=== PATIENT | female | born 1940 | race Caucasian/White ===

== ENCOUNTER 2016-07-07 13:29 | Inpatient (IN) | payer MEDICARE ==
[~2016-07-07] VITALS: Ht 160 cm; Wt 46.5 kg
[~2016-07-07 13:29] MED LIST: AMBI10TA PO; PRIN10TA PO; TOPR25TA2 PO; ZOCO40TA PO
[2016-07-07 13:32] VITALS: BP 108/60; PULSE 98; RESP 20; TEMP 97.6; O2SAT 95
--- NOTE | 2016-07-07 14:46 | PD ---
HPI Chief Complaint: Skin Problem Time Seen by Provider: 14:46 Travel History International Travel<30 days: No Contact w/Intl Traveler<30days: No Traveled to known affect area: No History of Present Illness HPI 75-year-old female presents to the emergency department for evaluation of discoloration of her distal left toe. Patient states for the last couple of days she has noticed it being more red. Then this morning she noticed a darker purple discoloration of the distal toe with pain radiating to her leg. She states that her left lower extremity feels numb at times. Elevation helps to reduce the sensation pain however the discoloration does not resolve. She went to her primary care providers today who sent her to the emergency department for evaluation of occlusion versus DVT. She has not been recently ill. No fevers or chills. No chest tightness. No shortness of breath. She does feel unsteady due to the numbness sensation in her left lower extremity that [place] about her mid distal lower extremity at this point. PFSH Past Medical History Cardiovascular Problems: Yes (MITRAL VALVE PROLAPSE) Diverticulitis: Yes Hypertension: Yes Past Surgical History Abdominal Aneurysm Repair: Yes (CLIP IN BRAIN) Abdominal Surgery: Yes (HERNIA REPAIRS) Cholecystectomy: Yes Hysterectomy: Yes Social History Alcohol Use: No Tobacco Use: Yes (1 PPD) Substance Use: No Allergies-Medications (Allergen,Severity, Reaction): Coded Allergies: Medrol (Verified Allergy, Severe, SHORTNESS OF BREATH, RASH, 01/31/10) Motrin (Verified Allergy, Intermediate, RASH AND SWELLING, 01/31/10) Darvocet-N 100 (Verified Allergy, Mild, RASH, 01/31/10) Darvon (Verified Allergy, Mild, RASH, 01/31/10) Percocet (Verified Allergy, Mild, RASH, 01/31/10) Percodan (Verified Allergy, Mild, RASH, 01/31/10) Aspirin (Verified Allergy, Unknown, NO BLOOD THINNERS PER PATIENT REQUEST , 01/31/10) Caffeine (Verified Allergy, Unknown, PER PATIENT REQUEST, 01/31/10) Codeine (Verified Allergy, Unknown, NO CODEINE DERIVATIVES, 01/31/10) Uncoded Allergies: NO MRI AND NO BLOOD THINNERS (Adverse Reaction, Unknown, 01/31/10) Reported Meds & Prescriptions Reported Meds & Active Scripts Active Reported Nabumetone 750 Mg Tab 750 Mg PO BID Metoprolol Tartrate 25 Mg Tab 25 Mg PO DAILY Lorazepam 1 Mg Tab 1 Mg PO BID PRN Hydrocodone-Acetaminophen 7.5-325 mg Tab 1 Tab PO Q8HR PRN Carisoprodol 350 Mg Tab 350 Mg PO BID PRN Buspirone (Buspirone HCl) 10 Mg Tab 10 Mg PO BID Review of Systems Except as stated in HPI: all other systems reviewed are Neg Physical Exam Narrative GENERAL: Well-nourished female patient, ambulatory and in no acute distress SKIN: Warm and dry. There is a purple discoloration of the distal left great toe. It is blanchable. Pulses are palpable but thready in the left side. The foot remains warm. HEAD: Atraumatic. Normocephalic. EYES: Pupils equal and round. No scleral icterus. No injection or drainage. This conjugated ENT: No nasal bleeding or discharge. Mucous membranes pink and moist. NECK: Trachea midline. No JVD. CARDIOVASCULAR: Regular rate and rhythm. No murmur appreciated. RESPIRATORY: No accessory muscle use. Clear to auscultation. Breath sounds equal bilaterally. GASTROINTESTINAL: Abdomen soft, non-tender, nondistended. Hepatic and splenic margins not palpable. MUSCULOSKELETAL: No obvious deformities. No clubbing. No cyanosis. No edema. NEUROLOGICAL: Awake and alert. No obvious cranial nerve deficits. Motor grossly within normal limits. Normal speech. Data Data Last Documented VS Vital Signs Date Time Temp Pulse Resp B/P Pulse Ox O2 Delivery O2 Flow Rate FiO2 07/07/16 18:00 97.8 86 16 136/69 97 Room Air Orders Complete Blood Count With Diff (07/07/16 14:45) Comprehensive Metabolic Panel (07/07/16 14:45) Coag Profile (07/07/16 14:45) Us Leg Venous Doppler (07/07/16 ) Heparin Infusion REFUGIO.Q1H (07/07/16 18:11) Heparin-D5w Inj (Heparin-D5w Inj) (07/07/16 18:15) Admit Order (Ed Use Only) (07/07/16 18:16) Labs Laboratory Tests Test 07/07/16 14:56 White Blood Count 9.9 TH/MM3 Red Blood Count 5.10 MIL/MM3 Hemoglobin 16.2 GM/DL Hematocrit 47.9 % Mean Corpuscular Volume 94.0 FL Mean Corpuscular Hemoglobin 31.8 PG Mean Corpuscular Hemoglobin 33.8 % Concent Red Cell Distribution Width 13.0 % Platelet Count 225 TH/MM3 Mean Platelet Volume 8.4 FL Neutrophils (%) (Auto) 78.5 % Lymphocytes (%) (Auto) 13.5 % Monocytes (%) (Auto) 4.9 % Eosinophils (%) (Auto) 1.9 % Basophils (%) (Auto) 1.2 % Neutrophils # (Auto) 7.8 TH/MM3 Lymphocytes # (Auto) 1.3 TH/MM3 Monocytes # (Auto) 0.5 TH/MM3 Eosinophils # (Auto) 0.2 TH/MM3 Basophils # (Auto) 0.1 TH/MM3 CBC Comment DIFF FINAL Differential Comment Prothrombin Time 11.0 SEC Prothromb Time International 1.0 RATIO Ratio Activated Partial 25.9 SEC Thromboplast Time Sodium Level 140 MEQ/L Potassium Level 3.8 MEQ/L Chloride Level 104 MEQ/L Carbon Dioxide Level 27.2 MEQ/L Anion Gap 9 MEQ/L Blood Urea Nitrogen 6 MG/DL Creatinine 0.65 MG/DL Estimat Glomerular Filtration 89 ML/MIN Rate Random Glucose 96 MG/DL Calcium Level 8.9 MG/DL Total Bilirubin 0.4 MG/DL Aspartate Amino Transf 13 U/L (AST/SGOT) Alanine Aminotransferase 16 U/L (ALT/SGPT) Alkaline Phosphatase 78 U/L Total Protein 7.2 GM/DL Albumin 3.7 GM/DL MDM Medical Decision Making Medical Screen Exam Complete: Yes Emergency Medical Condition: Yes Medical Record Reviewed: Yes Differential Diagnosis Superficial thrombosis versus DVT versus occlusive disease versus PAD Narrative Course 75-year-old female presents to emergency department for evaluation of discoloration of the left distal great toe. Patient appears without distress. Workup is initiated in triage. Once a medical bed becomes available, patient will be transferred and care assumed by that provider. 1615 we are contacted by CT where patient has gone for evaluation of possible occlusion and patient states in CT that she is allergic to contrast dye. This has not been listed in her allergies up to this point. Patient will be moved to the triage area where she'll wait for next medical bed. Condition: Stable Carolyn Villalobos Jul 07, 2016 14:46
[2016-07-07 15:18] LABS: AUTOMATED NEUTROPHIL # 7.8 TH/MM3 (1.8-7.7); BASOPHIL # 0.1 TH/MM3 (0-0.2); BASOPHIL % 1.2 % (0.0-2.0); EOSINOPHIL # 0.2 TH/MM3 (0-0.4); EOSINOPHIL % 1.9 % (0.0-4.0); HEMATOCRIT 47.9 % (35.0-46.0); HEMO FLAGS DIFF FINAL; LYMPH % 13.5 % (9.0-44.0); LYMPHOCYTE # 1.3 TH/MM3 (1.0-4.8); MEAN CORPUSCULAR HEMOGLOBIN 31.8 PG (27.0-34.0); MEAN CORPUSCULAR HGB CONC 33.8 % (32.0-36.0); MONO % 4.9 % (0.0-8.0); NEUT % 78.5 % (16.0-70.0); PLATELET COUNT 225 TH/MM3 (150-450); WHITE BLOOD COUNT 9.9 TH/MM3 (4.0-11.0)
[2016-07-07 15:30] LABS: APTT (PATIENT) 25.9 SEC (24.3-30.1)
[2016-07-07 15:41] LABS: ALT (GPT) 16 U/L (10-53); ANION GAP 9 MEQ/L (5-15); AST (GOT) 13 U/L (15-37); BICARBONATE 27.2 MEQ/L (21.0-32.0); BLOOD UREA NITROGEN 6 MG/DL (7-18); CHLORIDE 104 MEQ/L (98-107); GLOMERULAR FILTRATION RATE 89 ML/MIN (>89); POTASSIUM 3.8 MEQ/L (3.5-5.1); SODIUM (NA) 140 MEQ/L (136-145)
[2016-07-07 15:43] LABS: ALKALINE PHOSPHATASE 78 U/L (45-117); TOTAL BILIRUBIN ADULT 0.4 MG/DL (0.2-1.0)
--- NOTE | 2016-07-07 16:55 | RADRPT ---
EXAM DATE/TIME: 07/07/2016 16:32 [facility] COMPARISON: No previous studies available for comparison. INDICATIONS : Left leg pain. MEDICAL HISTORY : Hypertension. Mitral valve prolapse. Diverticulitis. SURGICAL HISTORY : Cholecystectomy. Hysterectomy. Brain anerysm repair. Abdominal hernia repairs. ENCOUNTER: Initial ACUITY: 3 days PAIN SCORE: 10/10 LOCATION: Left leg. TECHNIQUE: Venous ultrasound of the leg was performed from the inguinal ligament to the proximal calf. Real-tanmay e, color Doppler and spectral tracing, compression and augmentation techniques were used. FINDINGS: There is normal compressibility of the deep venous system from the inguinal region to the proximal ca lf. No echogenic clot is seen in the lumen of the common femoral, femoral, popliteal, and posterior tibial veins. There is a normal response of the venous system to proximal and distal augmentation an d respiration. CONCLUSION: Normal examination. No evidence DVT Jus Nunez MD on July 07, 2016 at 16:54 Board Certified Radiologist. This report was verified electronically.
[2016-07-07] MEDS ORDERED: NABU1TAB33 PO (17:42)
[2016-07-07] MEDS ORDERED: LORA1TAB12 PO (17:42)
[2016-07-07] MEDS ORDERED: METO25TA3 PO (17:42)
[2016-07-07] MEDS ORDERED: CARI350T20 PO (17:42)
[2016-07-07] MEDS ORDERED: HYDR-3580 PO (17:42)
[2016-07-07] MEDS ORDERED: BUSP10TA PO (17:42)
[2016-07-07 18:00] VITALS: BP 136/69; PULSE 86; RESP 16; TEMP 97.8; O2SAT 97
--- NOTE | 2016-07-07 18:20 | PD ---
Physical Exam Narrative Patient was seen by my periodontal assistant and signed out to me. Data Data Last Documented VS Vital Signs Date Time Temp Pulse Resp B/P Pulse Ox O2 Delivery O2 Flow Rate FiO2 07/07/16 18:00 97.8 86 16 136/69 97 Room Air Orders Complete Blood Count With Diff (07/07/16 14:45) Comprehensive Metabolic Panel (07/07/16 14:45) Coag Profile (07/07/16 14:45) Us Leg Venous Doppler (07/07/16 ) Heparin Infusion REFUGIO.Q1H (07/07/16 18:11) Heparin-D5w Inj (Heparin-D5w Inj) (07/07/16 18:15) Labs Laboratory Tests Test 07/07/16 14:56 White Blood Count 9.9 TH/MM3 Red Blood Count 5.10 MIL/MM3 Hemoglobin 16.2 GM/DL Hematocrit 47.9 % Mean Corpuscular Volume 94.0 FL Mean Corpuscular Hemoglobin 31.8 PG Mean Corpuscular Hemoglobin 33.8 % Concent Red Cell Distribution Width 13.0 % Platelet Count 225 TH/MM3 Mean Platelet Volume 8.4 FL Neutrophils (%) (Auto) 78.5 % Lymphocytes (%) (Auto) 13.5 % Monocytes (%) (Auto) 4.9 % Eosinophils (%) (Auto) 1.9 % Basophils (%) (Auto) 1.2 % Neutrophils # (Auto) 7.8 TH/MM3 Lymphocytes # (Auto) 1.3 TH/MM3 Monocytes # (Auto) 0.5 TH/MM3 Eosinophils # (Auto) 0.2 TH/MM3 Basophils # (Auto) 0.1 TH/MM3 CBC Comment DIFF FINAL Differential Comment Prothrombin Time 11.0 SEC Prothromb Time International 1.0 RATIO Ratio Activated Partial 25.9 SEC Thromboplast Time Sodium Level 140 MEQ/L Potassium Level 3.8 MEQ/L Chloride Level 104 MEQ/L Carbon Dioxide Level 27.2 MEQ/L Anion Gap 9 MEQ/L Blood Urea Nitrogen 6 MG/DL Creatinine 0.65 MG/DL Estimat Glomerular Filtration 89 ML/MIN Rate Random Glucose 96 MG/DL Calcium Level 8.9 MG/DL Total Bilirubin 0.4 MG/DL Aspartate Amino Transf 13 U/L (AST/SGOT) Alanine Aminotransferase 16 U/L (ALT/SGPT) Alkaline Phosphatase 78 U/L Total Protein 7.2 GM/DL Albumin 3.7 GM/DL MDM Supervised Visit with DOC: Yes Narrative Course Dr. Diaz, vascular surgeon came to see the patient. Advised admission and heparin drip and IV hydration. CTA runoff in a.m. Diagnosis Primary Impression: Peripheral vascular disease with pain at rest Admitting Information Admitting Physician Requests: Admit Condition: Stable Abraham Barros MD Jul 07, 2016 18:20
[2016-07-07] MEDS: HEPARIN-D5W INJ 250 ML IV SCH (18:27)
[2016-07-07] MEDS ORDERED: ONDANSETRON HCL 4 MG/2 ML VIAL IV PRN (18:30)
[2016-07-07] MEDS ORDERED: ACETAMINOPHEN 325 MG TAB PO PRN (18:30)
[2016-07-07] MEDS ORDERED: SODIUM CHLORIDE 0.9% FLUSH 5 ML FLUSH IVF PRN (18:30)
[2016-07-07] MEDS: SODIUM CHLOR 0.9% 1000 ML INJ 1,000 ML IV SCH (18:35)
--- NOTE | 2016-07-07 18:38 | PD.VS.CON ---
History of Present Illness Chief Complaint: left great toe wound for six weeks that has expanded from a ena to a pea- sized painful discoloration over the tip. (worst over past 4 days) Consult Requested by: Abraham Barros History of Present Illness Pleasant 75 yr old with hx of hypertension/hyperlipidemia and 60+ pack year smoking hx (smoking since 13 years of age) and left great toe wound. Coinciding claudication with activities at home relieved with rest. Denies sidedness. Denies TIA, CP, or SOB. Hx of intracerebral aneurysm clipping. Past/Family/Social History Past Medical History Hypertension anxiety hyperlipidemia Past Surgical History RIH repair. Umbilical hernia repair Cholecystectomy intracerebral aneurysm clipping Social History smoking for 60+ pack yrs. Family History denies Home Medications Reported Medications Nabumetone 750 Mg [id number] Mg PO BID #60 TAB Ref 0 07/07/16 Metoprolol Tartrate 25 Mg Tab25 Mg PO DAILY #30 TAB Ref 0 07/07/16 Lorazepam 1 Mg Tab1 Mg PO BID PRN (for severe anxiety or dyspnea) Ref 0 07/07/16 Hydrocodone-Acetaminophen 7.5-325 mg Tab1 Tab PO Q8HR PRN (PAIN) Ref 0 07/07/16 Carisoprodol 350 Mg [id number] Mg PO BID PRN (PAIN) #0 TAB Ref 0 07/07/16 Buspirone 10 Mg Tab10 Mg PO BID Ref 0 07/07/16 Coded Allergies: Medrol (Verified Allergy, Severe, SHORTNESS OF BREATH, RASH, 01/31/10) Motrin (Verified Allergy, Intermediate, RASH AND SWELLING, 01/31/10) Darvocet-N 100 (Verified Allergy, Mild, RASH, 01/31/10) Darvon (Verified Allergy, Mild, RASH, 01/31/10) Percocet (Verified Allergy, Mild, RASH, 01/31/10) Percodan (Verified Allergy, Mild, RASH, 01/31/10) Aspirin (Verified Allergy, Unknown, NO BLOOD THINNERS PER PATIENT REQUEST , 01/31/10) Caffeine (Verified Allergy, Unknown, PER PATIENT REQUEST, 01/31/10) Codeine (Verified Allergy, Unknown, NO CODEINE DERIVATIVES, 01/31/10) Uncoded Allergies: NO MRI AND NO BLOOD THINNERS (Adverse Reaction, Unknown, 01/31/10) Review of Systems ROS Limitations: Other (anxuiys) Gastrointestinal: COMPLAINS OF: Diarrhea (intermittent) Psychiatric: COMPLAINS OF: Anxiety (would like to go home), Confusion, Mood changes, Depression, Hallucinations, Agitation, Suicidal Ideation, Homicidal Ideation, Delusions Physical Exam Vitals/I&O Date Time Temp Pulse Resp B/P Pulse Ox O2 Delivery O2 Flow Rate FiO2 07/07/16 18:00 97.8 86 16 136/69 97 Room Air 07/07/16 13:32 97.6 98 20 108/60 95 Room Air Neuro: CN2-12 intact, motor and sensory intact bilaterally. HEENT: tounge moist Neck: no carotid bruits Heart: no murmurs, regular rate. Lungs: CTA bilaterally. Abdomen: soft, non-distended, no pulsatile mass. Vascular: Bilateral radial palpable Right femoral palpable with triphasic DP and PT. Left NON palpable femoral pulse with biphasic DP and PT. Extremities: left great toe distal tip with 4mm discoloration. Laboratory Tests Test 07/07/16 14:56 White Blood Count 9.9 Red Blood Count 5.10 Hemoglobin 16.2 Hematocrit 47.9 Mean Corpuscular Volume 94.0 Mean Corpuscular Hemoglobin 31.8 Mean Corpuscular Hemoglobin 33.8 Concent Red Cell Distribution Width 13.0 Platelet Count 225 Mean Platelet Volume 8.4 Neutrophils (%) (Auto) 78.5 Lymphocytes (%) (Auto) 13.5 Monocytes (%) (Auto) 4.9 Eosinophils (%) (Auto) 1.9 Basophils (%) (Auto) 1.2 Neutrophils # (Auto) 7.8 Lymphocytes # (Auto) 1.3 Monocytes # (Auto) 0.5 Eosinophils # (Auto) 0.2 Basophils # (Auto) 0.1 CBC Comment DIFF FINAL Differential Comment Prothrombin Time 11.0 Prothromb Time International 1.0 Ratio Activated Partial 25.9 Thromboplast Time Sodium Level 140 Potassium Level 3.8 Chloride Level 104 Carbon Dioxide Level 27.2 Anion Gap 9 Blood Urea Nitrogen 6 Creatinine 0.65 Estimat Glomerular Filtration 89 Rate Random Glucose 96 Calcium Level 8.9 Total Bilirubin 0.4 Aspartate Amino Transf 13 (AST/SGOT) Alanine Aminotransferase 16 (ALT/SGPT) Alkaline Phosphatase 78 Total Protein 7.2 Albumin 3.7 Last 48 hours Impressions Lower Extremity Ultrasound 07/07/16 0000 Signed Impressions: Service Date/Time: Thursday, July 07, 2016 16:32 - CONCLUSION: Normal examination. No evidence DVT Jus Nunez MD Assessment and Plan Assessment: (1) Peripheral vascular disease with pain at rest Status: Chronic Plan 75 year old female with hx of smoking, hypertension and hyperlipidemia. Critical limb ischemia with great toe wound/ischemic changes left lower extremity. (6 weeks since findings) Motor and sensory intact. Vascular exam significant for multilevel disease. 1. smoking cessation. 2. Continue statin. 3. Patient with hx of intracerebral aneurysm told not to take blood thinners. Discussed risk and benefits of an antiplatelet medication (aspirin, plavix) etc. Heparin drip without bolus in the interim. 4. Arterial non-invasive examination and CTA of aorta with runoff. 5. Patient admitted to medical service. Robby Diaz DO, FACS Systematic Theology Professor of Vascular Surgery /[facility] Robby Diaz DO Jul 07, 2016 18:38
[2016-07-07 19:10] VITALS: BP 130/67; PULSE 82; RESP 17; TEMP 97.8; O2SAT 99
[2016-07-07] MEDS ORDERED: LORazepam 2 MG/ML VIAL IV PUSH ONE (19:45)
[2016-07-07] MEDS: SODIUM CHLORIDE 0.9% FLUSH 5 ML FLUSH IVF SCH (19:51)
[2016-07-07 21:07] VITALS: BP 131/63; PULSE 78; RESP 16; TEMP 97.8; O2SAT 99
--- NOTE | 2016-07-07 21:16 | HHI.HP ---
HPI Service CP Hospitalists Primary Care Physician Unknown Admission Diagnosis vascular insufficient left leg Chief Complaint: Left great toe discoloration and pain, sent from outside clinic Travel History International Travel<30 Days: No Contact w/Intl Traveler <30 Da: No Traveled to Known Affected Are: No History of Present Illness 75-year-old female with history of coronary artery disease, COPD and long time cigarette use presents to the emergency department for evaluation of discoloration of her distal left toe. Patient first noted redness in the form of a small red dots about 2 mm in diameter on the tip of her left great toe approximately 6 weeks ago. The small dot remains the same until approximately 4 days ago when it started to swell and have more redness. She noted some black discoloration last night and this morning with increased pain. She notes more pain with exertion and actually has some claudication symptoms in the entire left lower extremity as well. She states that her left lower extremity feels numb at times over the last day as well. Elevation helps to reduce the sensation pain however the discoloration does not resolve completely. She went to extended hours clinic at [facility] who sent her to the emergency department for evaluation of occlusion versus DVT. She has not been recently ill. No fevers or chills. No chest tightness. No shortness of breath. She does feel unsteady due to the numbness sensation in her left lower extremity. She has been evaluated by ER physician as well as a vascular surgeon in the ER. Angiogram has been ordered and patient was placed on heparin drip. Her toe discoloration is actually improved since the foot has been elevated and she has been on a heparin drip. She still has pain in the left great toe but not as severe. Review of Systems Constitutional: COMPLAINS OF: Fatigue Eyes: COMPLAINS OF: Blurred vision Ears, nose, mouth, throat: DENIES: Tinnitus, Hearing loss, Vertigo, Nasal discharge, Oral lesions, Throat pain, Hoarseness, Ear Pain, Running Nose, Epistaxis, Sinus Pain, Toothache, Odynophagia Respiratory: COMPLAINS OF: Wheezing, Shortness of breath Cardiovascular: DENIES: Chest pain, Palpitations, Syncope, Dyspnea on Exertion , PND, Lower Extremity Edema, Orthopnea, Claudication Gastrointestinal: DENIES: Abdominal pain, Black stools, Bloody stools, BRB per rectum, Constipation, Diarrhea, GERD, Nausea, Reflux, Vomiting, Difficulty Swallowing, Anorexia, See HPI Musculoskeletal: COMPLAINS OF: Joint pain, Back pain Integumentary: COMPLAINS OF: Abnormal pigmentation Immunologic/allergic: DENIES: Eczema, Urticaria Neurologic: COMPLAINS OF: Abnormal gait Psychiatric: COMPLAINS OF: Anxiety Other Left great toe pain and discoloration is noted Past Family Social History Past Medical History Anxiety COPD Coronary artery disease Cerebellar tremor Saenz's esophagus Lumbar degenerative disc disease Hypertension Hyperlipidemia Chronic nicotine dependence Osteoporosis Pulmonary emphysema Past Surgical History Brain aneurysmal clipping in 1987 Cholecystectomy at age 32 Inguinal hernia repair and hiatal hernia repairs in the distant past Total abdominal hysterectomy at age 37 Reported Medications Nabumetone 750 Mg Tab 750 Mg PO BID Metoprolol Tartrate 25 Mg Tab 25 Mg PO DAILY Lorazepam 1 Mg Tab 1 Mg PO BID PRN Hydrocodone-Acetaminophen 7.5-325 mg Tab 1 Tab PO Q8HR PRN Carisoprodol 350 Mg Tab 350 Mg PO BID PRN Buspirone (Buspirone HCl) 10 Mg Tab 10 Mg PO BID Allergies: Coded Allergies: Medrol (Verified Allergy, Severe, SHORTNESS OF BREATH, RASH, 01/31/10) Motrin (Verified Allergy, Intermediate, RASH AND SWELLING, 01/31/10) Darvocet-N 100 (Verified Allergy, Mild, RASH, 01/31/10) Darvon (Verified Allergy, Mild, RASH, 01/31/10) Percocet (Verified Allergy, Mild, RASH, 01/31/10) Percodan (Verified Allergy, Mild, RASH, 01/31/10) Aspirin (Verified Allergy, Unknown, NO BLOOD THINNERS PER PATIENT REQUEST , 01/31/10) Caffeine (Verified Allergy, Unknown, PER PATIENT REQUEST, 01/31/10) Codeine (Verified Allergy, Unknown, NO CODEINE DERIVATIVES, 01/31/10) Uncoded Allergies: NO MRI AND NO BLOOD THINNERS (Adverse Reaction, Unknown, 01/31/10) Family History Noncontributory Social History Lives with a friend and her brother Smokes one pack cigarettes per day and has done that for approximately 60 years No alcohol or illicit drug use She is generally independent but doesn't drive anymore secondary to chronic visual changes She has been in the area since age 4o and 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 SKIN: Left great toe distally with erythema and mild tenderness to palpation with a dark blackish she is at the distal tip. Cool and dry. HEAD: Atraumatic. Normocephalic. No temporal or scalp tenderness. EYES: Pupils equal round and reactive. Extraocular motions intact. No scleral icterus. No injection or drainage. ENT: Nose without bleeding, purulent drainage or septal hematoma. Throat without erythema, tonsillar hypertrophy or exudate. Uvula midline. Airway patent. NECK: Trachea midline. No JVD or lymphadenopathy. Supple, nontender, no meningeal signs. CARDIOVASCULAR: Regular rate and rhythm without murmurs, gallops, or rubs. RESPIRATORY: Few expiratory wheezes. Breath sounds equal bilaterally. No fine crackles. GASTROINTESTINAL: Abdomen soft, non-tender, nondistended. No hepato-splenomegaly , or palpable masses. No guarding. MUSCULOSKELETAL: Moves all extremities. F great toe as noted above. No joint tenderness, effusion, or edema noted. No calf tenderness. NEUROLOGICAL: Awake and alert. Cranial nerves II through XII intact. Motor and sensory grossly within normal limits. Five out of 5 muscle strength in all muscle groups. Normal speech. Laboratory Laboratory Tests Test 07/07/16 14:56 White Blood Count 9.9 Red Blood Count 5.10 Hemoglobin 16.2 Hematocrit 47.9 Mean Corpuscular Volume 94.0 Mean Corpuscular Hemoglobin 31.8 Mean Corpuscular Hemoglobin 33.8 Concent Red Cell Distribution Width 13.0 Platelet Count 225 Mean Platelet Volume 8.4 Neutrophils (%) (Auto) 78.5 Lymphocytes (%) (Auto) 13.5 Monocytes (%) (Auto) 4.9 Eosinophils (%) (Auto) 1.9 Basophils (%) (Auto) 1.2 Neutrophils # (Auto) 7.8 Lymphocytes # (Auto) 1.3 Monocytes # (Auto) 0.5 Eosinophils # (Auto) 0.2 Basophils # (Auto) 0.1 CBC Comment DIFF FINAL Differential Comment Prothrombin Time 11.0 Prothromb Time International 1.0 Ratio Activated Partial 25.9 Thromboplast Time Sodium Level 140 Potassium Level 3.8 Chloride Level 104 Carbon Dioxide Level 27.2 Anion Gap 9 Blood Urea Nitrogen 6 Creatinine 0.65 Estimat Glomerular Filtration 89 Rate Random Glucose 96 Calcium Level 8.9 Total Bilirubin 0.4 Aspartate Amino Transf 13 (AST/SGOT) Alanine Aminotransferase 16 (ALT/SGPT) Alkaline Phosphatase 78 Total Protein 7.2 Albumin 3.7 Result Diagram: 07/07/16 1456 07/07/16 1456 Assessment and Plan Problem List: (1) Peripheral vascular disease with pain at rest Status: Chronic Plan: Acute exacerbation of likely chronic illness. Vascular surgery his artery seen the patient. Angiogram ordered. She is on heparin drip and they have discussed the risk and benefits of this with her particularly given her history of aneurysmal clipping. The left toe actually looks better than what it did earlier per patient report. (2) COPD (chronic obstructive pulmonary disease) Status: Chronic Plan: Duo neb as needed. (3) Hypertension Status: Chronic Plan: Continue home medication. (4) Hyperlipidemia Status: Chronic Plan: Continue treatment. (5) Tobacco use Status: Chronic Plan: Strongly encouraged her to quit smoking. We'll provide NicoDerm patch. (6) Anxiety Status: Chronic Plan: Lorazepam as at home. Code Status Full Discussed Condition With Patient and ER physician Physician Certification 2 Midnight Certification Type: Admission for Inpatient Services Order for Inpatient Services The services are ordered in accordance with Medicare regulations or non- Medicare payer requirements, as applicable. In the case of services not specified as inpatient-only, they are appropriately provided as inpatient services in accordance with the 2-midnight benchmark. Estimated LOS (days): 2 days is the estimated time the patient will need to remain in the hospital, assuming treatment plan goals are met and no additional complications. Post-Hospital Plan: Home Problem Qualifiers (1) Hypertension: Qualified Code: I10 - Essential hypertension Abhi Montero PhD Jul 07, 2016 21:16
[2016-07-07] MEDS: busPIRone HCL 10 MG TAB PO SCH (21:25)
[2016-07-07] MEDS: ACETAMINOPHEN/HYDROcodone 325 MG/7.5 MG TAB PO PRN (21:26)
[2016-07-07] MEDS ORDERED: RESP: ALBUTEROL 2.5 MG/IPRATROPIUM 0.5 MG NEB (PRN) NEB (21:30)
[2016-07-08] VITALS (8 sets, daily range): BP systolic 131–173; BP diastolic 56–74; PULSE 69–96; RESP 16–18; TEMP 96.3–97.6; O2SAT 93–98
[2016-07-08 03:31] LABS: APTT (PATIENT) 31.1 SEC (24.3-30.1)
[2016-07-08] MEDS: ACETAMINOPHEN/HYDROcodone 325 MG/7.5 MG TAB PO PRN ×3 (04:50→21:42)
[2016-07-08] MEDS: SODIUM CHLORIDE 0.9% FLUSH 5 ML FLUSH IVF SCH ×2 (09:00→21:00)
[2016-07-08] MEDS ORDERED: NICOTINE 21 MG/24 HR PATCH TD SCH (09:00)
[2016-07-08] MEDS: ATORVASTATIN 40 MG TAB PO SCH (09:32)
[2016-07-08] MEDS: METOPROLOL TARTRATE 25 MG TAB PO SCH (09:33)
[2016-07-08] MEDS: busPIRone HCL 10 MG TAB PO SCH ×2 (09:33→21:41)
[2016-07-08] MEDS: SODIUM CHLOR 0.9% 1000 ML INJ 1,000 ML IV SCH ×2 (09:35→16:49)
[2016-07-08 10:34] LABS: APTT (PATIENT) 47.8 SEC (24.3-30.1)
[2016-07-08] MEDS ORDERED: IOHEXOL 350 MG/ML 10 ML VIAL (for RAD DIAG) IV ONE (10:47)
[2016-07-08] MEDS ORDERED: IOHEXOL 300 MG/ML 100 ML BTL (for Rad CT) IV ONE (10:59)
--- NOTE | 2016-07-08 11:43 | RADRPT ---
EXAM DATE/TIME: 07/07/2016 00:00 [facility] COMPARISON: No previous studies available for comparison. INDICATIONS : PURPLE LEFT GREAT TOE TECHNIQUE: Five-station segmental examination of the lower extremities was performed. Pulsed-cuff waveform tracings and pressures were recorded. Ankle-brachial indices and toe-brachial indices were calculated. PRESSURES (mmHg): Brachial (arm): Right 116 Lower Thigh: Right 177 Left 126 Calf: Right 80 Left 89 Ankle: Right 137 Left 85 Toe: Right 60 Left 32 YI: Right 1.18 Left 0.73 TBI: Right 0.52 Left 0.28 PULSED CUFF WAVEFORMS: Demonstrate normal amplitude bilaterally. CONCLUSION: 1. Zhko-ct-kdsryiae disease on the left with significant decrease in the toe brachial indices on the left side characteristic of small vessel vascular disease. CT angiography of the abdominal aorta and lower extremities is recommended for further evaluation if clinically indicated. Nikita Jaimes MD on July 08, 2016 at 11:41 Board Certified Radiologist. This report was verified electronically.
[2016-07-08] MEDS: CARISOPRODOL 350 MG TAB PO PRN ×2 (12:39→21:42)
[2016-07-08] MEDS: LORazepam 1 MG TAB PO PRN ×2 (12:39→22:10)
--- NOTE | 2016-07-08 14:33 | RADRPT ---
EXAM DATE/TIME: 07/08/2016 10:28 [facility] COMPARISON: No previous studies available for comparison. INDICATIONS : Left great toe discoloration. Unable to palpate left femoral artery. IV CONTRAST: 100 cc Omnipaque 350 (iohexol) IV RADIATION DOSE: 2.03 CTDIvol (mGy) MEDICAL HISTORY : Cardiovascular disease. Gastroesophageal reflux disease. Saenz's esophagus. SURGICAL HISTORY : Brain aneurysm repair. ENCOUNTER: Subsequent ACUITY: 2 days PAIN SCALE: 3/10 LOCATION: Left lower extremity. TECHNIQUE: Volumetric scanning was performed using a multi-row detector CT scanner. The data was post processed with a variety of visualization algorithms including full volume maximum intensity projection, multi -planar sliding thin slab reformation, curved planar reformation, and surface rendering techniques. Using automated exposure control and adjustment of the mA and/or kV according to patient size, radiat ion dose was kept as low as reasonably achievable to obtain optimal diagnostic quality images. FINDINGS: Abdominal aorta: The celiac and SMA origins are widely patent. There are single renal arteries bilaterally the renal a rteries are adequate in caliber bilaterally. The infrarenal aorta is heavily diseased. It is normal i n caliber. The WYATT is patent. Pelvis: The common iliac, internal iliac and external iliac circulation is diffusely diseased bilaterally. Th ere is mild stenosis in the left common iliac. There is a focal area of high-grade stenosis in the pr oximal left external iliac with several areas of mild to moderate stenosis in its mid aspect. The rig ht external iliac circulation is diseased but adequate in caliber. The hypogastric circulation is dis eased but patent. Right leg: The common femoral profunda femoral are widely patent. The superficial femoral and straight some athe rosclerotic plaquing but is adequate in caliber throughout its course. The popliteal is patent above and below the knee. All 3 trifurcation vessels are patent down into the foot. Left leg: The left common femoral and profunda femoral artery disease but adequate in caliber. The superficial femoral demonstrates mild atherosclerotic plaquing but is adequate in caliber throughout its course. The popliteal is patent above and below the knee. All 3 trifurcation vessels are patent down into the foot. CT source data: The solid organs of the abdomen are grossly intact. There is no retroperitoneal adenopathy. CONCLUSION: 1. Left le. There are least 2 areas of high-grade stenosis in the left external iliac circulation proximally. These areas would be readily amenable to endovascular treatment. The runoff to the left lower extremi ty is diseased but adequate. 3. 4. Right le. The inflow and runoff to the right lower extremity appears diseased but adequate. Rommel Anaya MD on July 08, 2016 at 14:20 Board Certified Radiologist. This report was verified electronically.
--- NOTE | 2016-07-08 15:33 | HHI.PR ---
Subjective Remarks Pt complains of nausea since admission She was not nauseated prior to admission. She is not eating much Denies any abd pain. Her last BM was two days ago +Flatus Objective Vitals Vital Signs Date Time Temp Pulse Resp B/P Pulse Ox O2 Delivery O2 Flow Rate FiO2 07/08/16 13:20 79 07/08/16 13:19 18 07/08/16 12:00 97.6 84 18 136/74 95 07/08/16 10:53 98 21 07/08/16 08:00 97.1 83 16 143/67 94 07/08/16 05:19 97.3 77 17 173/72 95 07/07/16 22:24 17 07/07/16 21:07 97.8 78 16 131/63 99 Room Air 07/07/16 19:10 97.8 82 17 130/67 99 Room Air 07/07/16 19:10 86 07/07/16 18:00 97.8 86 16 136/69 97 Room Air 07/07/16 17:35 76 17 07/07/16 07/07/16 07/08/16 15:00 23:00 07:00 Intake Total 120 ml 120 ml Balance 120 ml 120 ml Intake Oral 120 ml 120 ml # Voids 1 2 # Bowel Movements 0 Result Diagram: 07/07/16 1456 07/07/16 1456 Other Results Laboratory Tests Test 07/07/16 07/08/16 07/08/16 14:56 03:06 09:50 White Blood Count 9.9 TH/MM3 Red Blood Count 5.10 MIL/MM3 Hemoglobin 16.2 GM/DL Hematocrit 47.9 % Mean Corpuscular Volume 94.0 FL Mean Corpuscular Hemoglobin 31.8 PG Mean Corpuscular Hemoglobin 33.8 % Concent Red Cell Distribution Width 13.0 % Platelet Count 225 TH/MM3 Mean Platelet Volume 8.4 FL Neutrophils (%) (Auto) 78.5 % Lymphocytes (%) (Auto) 13.5 % Monocytes (%) (Auto) 4.9 % Eosinophils (%) (Auto) 1.9 % Basophils (%) (Auto) 1.2 % Neutrophils # (Auto) 7.8 TH/MM3 Lymphocytes # (Auto) 1.3 TH/MM3 Monocytes # (Auto) 0.5 TH/MM3 Eosinophils # (Auto) 0.2 TH/MM3 Basophils # (Auto) 0.1 TH/MM3 CBC Comment DIFF FINAL Differential Comment Prothrombin Time 11.0 SEC Prothromb Time International 1.0 RATIO Ratio Activated Partial 25.9 SEC 31.1 SEC 47.8 SEC Thromboplast Time Sodium Level 140 MEQ/L Potassium Level 3.8 MEQ/L Chloride Level 104 MEQ/L Carbon Dioxide Level 27.2 MEQ/L Anion Gap 9 MEQ/L Blood Urea Nitrogen 6 MG/DL Creatinine 0.65 MG/DL Estimat Glomerular Filtration 89 ML/MIN Rate Random Glucose 96 MG/DL Calcium Level 8.9 MG/DL Total Bilirubin 0.4 MG/DL Aspartate Amino Transf 13 U/L (AST/SGOT) Alanine Aminotransferase 16 U/L (ALT/SGPT) Alkaline Phosphatase 78 U/L Total Protein 7.2 GM/DL Albumin 3.7 GM/DL Imaging Last Impressions Aorta w/Runoff CTA 07/08/16 0000 Signed Impressions: Service Date/Time: Friday, July 08, 2016 10:28 - CONCLUSION: 1. Left leg : 2. There are least 2 areas of high-grade stenosis in the left external iliac circulation proximally. These areas would be readily amenable to endovascular treatment. The runoff to the left lower extremity is diseased but adequate. 3. 4. Right le. The inflow and runoff to the right lower extremity appears diseased but adequate. Rommel Anaya MD Lower Extremity Ultrasound 07/07/16 0000 Signed Impressions: Service Date/Time: Thursday, July 07, 2016 16:32 - CONCLUSION: Normal examination. No evidence DVT Jus Nunez MD A/P Problem List: (1) Peripheral vascular disease with pain at rest Status: Chronic Plan: - Pt admitted with acute exacerbation of likely chronic vascular disease. - Pt was admitted for a worsening dark/painful area on her left great toe. - Vascular surgery is following. - CTA with runoff --> Left leg: There are least 2 areas of high-grade stenosis in the left external iliac circulation proximally. The runoff to the left lower extremity is diseased but adequate. Right leg: The inflow and runoff to the right lower extremity appears diseased but adequate. - Pt is on heparin gtt and they have discussed the risk and benefits of this with her particularly given her history of aneurysmal clipping. - The left toe actually looks better than what it did earlier per patient report. - Pt complains of increased nausea today - Increase the frequency of her Zofran to q4h PRN - Pain meds PRN (2) COPD (chronic obstructive pulmonary disease) Status: Chronic Plan: - Duo neb as needed. (3) Hypertension Status: Chronic Plan: - Home medication continued (4) Hyperlipidemia Status: Chronic Plan: - Statin (5) Tobacco use Status: Chronic Plan: - Strongly encouraged her to quit smoking. - NicoDerm patch. (6) Anxiety Status: Chronic Plan: - Lorazepam as at home. Assessment and Plan Patient examined. Assessment and plan formulated with Jessica Camarillo PA-C. I agree with the above. nausea may be related to nicotine patch. will stop cont heparin. await vascular reccs for abnormal cta and left great toe Problem Qualifiers (1) Hypertension: Qualified Code: I10 - Essential hypertension Jessica Camarillo Jul 08, 2016 15:33 Junior Castañeda MD Jul 08, 2016 21:26
[2016-07-08] MEDS ORDERED: ONDANSETRON HCL 4 MG/2 ML VIAL IV PRN (16:30)
--- NOTE | 2016-07-08 18:01 | PD.VS.PN ---
Subjective Subjective/Hospital Course left foot feels better. Patient anxious about being in hospital. Objective Vitals/I&O Date Time Temp Pulse Resp B/P Pulse Ox O2 Delivery O2 Flow Rate FiO2 07/08/16 16:19 96.3 69 18 138/61 93 07/08/16 13:20 79 07/08/16 13:19 18 07/08/16 12:00 97.6 84 18 136/74 95 07/08/16 10:53 98 21 07/08/16 08:00 97.1 83 16 143/67 94 07/08/16 05:19 97.3 77 17 173/72 95 07/07/16 22:24 17 07/07/16 21:07 97.8 78 16 131/63 99 Room Air 07/07/16 19:10 97.8 82 17 130/67 99 Room Air 07/07/16 19:10 86 07/07/16 18:00 97.8 86 16 136/69 97 Room Air 07/08/16 07/08/16 07/08/16 07:00 15:00 23:00 Intake Total 120 ml 1530 ml Balance 120 ml 1530 ml Laboratory Laboratory Tests Test 07/08/16 07/08/16 03:06 09:50 Activated Partial 31.1 47.8 Thromboplast Time Imaging Last 48 hours Impressions Aorta w/Runoff CTA 07/08/16 0000 Signed Impressions: Service Date/Time: Friday, July 08, 2016 10:28 - CONCLUSION: 1. Left leg : 2. There are least 2 areas of high-grade stenosis in the left external iliac circulation proximally. These areas would be readily amenable to endovascular treatment. The runoff to the left lower extremity is diseased but adequate. 3. 4. Right le. The inflow and runoff to the right lower extremity appears diseased but adequate. Rommel Anaya MD Lower Extremity Ultrasound 07/07/16 0000 Signed Impressions: Service Date/Time: Thursday, July 07, 2016 16:32 - CONCLUSION: Normal examination. No evidence DVT Jus Nunez MD Assessment and Plan Assessment: (1) Peripheral vascular disease with pain at rest Status: Chronic Plan 75 year old female with hx of smoking, hypertension and hyperlipidemia. Critical limb ischemia with great toe wound/ischemic changes left lower extremity. (6 weeks since findings) Motor and sensory intact. Vascular exam significant for multilevel disease. 1. smoking cessation. 2. Continue statin. 3. On heparin drip. This could be discontinued and an antiplatelet medication started. (aspirin/plavix) 4. Arterial non-invasive examination and CTA of aorta with runoff shows left external iliac artery lesions that may be responsible for left lower extremity lack of pulses and ischemic left great toe/pain. 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 5. Discussed angiogram with possible intervention with the patient later this week in hybrid suite. Robby Diaz DO, FACS Acting Section Chief of Vascular Surgery /[facility] Robby Diaz DO Jul 08, 2016 18:01
[2016-07-08 18:49] LABS: APTT (PATIENT) 72.1 SEC (24.3-30.1)
[2016-07-08] MEDS: HEPARIN-D5W INJ 250 ML IV SCH (21:53)
[2016-07-09] VITALS (8 sets, daily range): BP systolic 135–172; BP diastolic 59–74; PULSE 57–95; RESP 18–20; TEMP 96.5–97.3; O2SAT 93–96
[2016-07-09] MEDS: SODIUM CHLORIDE 0.9% FLUSH 5 ML FLUSH IVF SCH ×2 (08:26→21:00)
[2016-07-09] MEDS: ATORVASTATIN 40 MG TAB PO SCH ×2 (08:28→08:32)
[2016-07-09] MEDS: METOPROLOL TARTRATE 25 MG TAB PO SCH (08:28)
[2016-07-09] MEDS: busPIRone HCL 10 MG TAB PO SCH ×2 (08:28→21:00)
[2016-07-09 09:15] LABS: APTT (PATIENT) 62.7 SEC (24.3-30.1)
--- NOTE | 2016-07-09 11:12 | PD.VS.PN ---
Subjective Subjective/Hospital Course Pt is a 75/F resting peacefully in bed with no complaints today reports discoloration to left great toe ( 1st digit ) times 4 days with no worsening or improvement Objective Vitals/I&O Date Time Temp Pulse Resp B/P Pulse Ox O2 Delivery O2 Flow Rate FiO2 07/09/16 09:59 70 07/09/16 08:17 97.0 68 18 143/59 93 07/09/16 00:00 97.2 57 18 135/74 96 07/08/16 20:00 97.3 96 18 131/56 93 07/08/16 18:00 77 07/08/16 16:19 96.3 69 18 138/61 93 07/08/16 13:20 79 07/08/16 13:19 18 07/08/16 12:00 97.6 84 18 136/74 95 Physical Exam GENERAL: GCS 15 nad , resting comfortably in bed SKIN: Warm and dry. Left great toe appears red and painless times 4 days with no improvement or redness NECK: Supple, trachea midline. No JVD or lymphadenopathy. CARDIOVASCULAR: Regular rate and rhythm RESPIRATORY: Breath sounds equal bilaterally MUSCULOSKELETAL: No cyanosis, or edema. palpable left pedal pulse noted non-palpable right pedal pulse noted Laboratory Laboratory Tests Test 07/08/16 07/09/16 18:20 08:43 Activated Partial 72.1 62.7 Thromboplast Time Imaging Last 48 hours Impressions Aorta w/Runoff CTA 07/08/16 0000 Signed Impressions: Service Date/Time: Friday, July 08, 2016 10:28 - CONCLUSION: 1. Left leg : 2. There are least 2 areas of high-grade stenosis in the left external iliac circulation proximally. These areas would be readily amenable to endovascular treatment. The runoff to the left lower extremity is diseased but adequate. 3. 4. Right le. The inflow and runoff to the right lower extremity appears diseased but adequate. Rommel Anaya MD Assessment and Plan Assessment: (1) Peripheral vascular disease with pain at rest Status: Chronic Plan 75 year old female with hx of smoking, hypertension and hyperlipidemia. Critical limb ischemia with great toe wound/ischemic changes left lower extremity. (6 weeks since findings) Motor and sensory intact. Vascular exam significant for multilevel disease. 1. smoking cessation. 2. Continue statin. 3. Discussed angiogram ( Thursday07/10/16) with possible intervention with the patient [phone] Jul 09, 2016 11:12
--- NOTE | 2016-07-09 12:27 | HHI.PR ---
Subjective Remarks Pt still having nausea Pt anxious about being in the hospital and about when/if she will receive intervention for her vascular disease Objective Vitals Vital Signs Date Time Temp Pulse Resp B/P Pulse Ox O2 Delivery O2 Flow Rate FiO2 07/09/16 09:59 70 07/09/16 08:17 97.0 68 18 143/59 93 07/09/16 00:00 97.2 57 18 135/74 96 07/08/16 20:00 97.3 96 18 131/56 93 07/08/16 18:00 77 07/08/16 16:19 96.3 69 18 138/61 93 07/08/16 13:20 79 07/08/16 13:19 18 07/08/16 07/08/16 07/09/16 15:00 23:00 07:00 Intake Total 1530 ml Balance 1530 ml Intake Oral 480 ml IV Total 1050 ml # Voids 4 2 # Bowel Movements 1 Result Diagram: 07/07/16 1456 07/07/16 1456 Other Results Laboratory Tests Test 07/07/16 07/08/16 07/08/16 07/08/16 14:56 03:06 09:50 18:20 White Blood Count 9.9 TH/MM3 Red Blood Count 5.10 MIL/MM3 Hemoglobin 16.2 GM/DL Hematocrit 47.9 % Mean Corpuscular Volume 94.0 FL Mean Corpuscular Hemoglobin 31.8 PG Mean Corpuscular Hemoglobin 33.8 % Concent Red Cell Distribution Width 13.0 % Platelet Count 225 TH/MM3 Mean Platelet Volume 8.4 FL Neutrophils (%) (Auto) 78.5 % Lymphocytes (%) (Auto) 13.5 % Monocytes (%) (Auto) 4.9 % Eosinophils (%) (Auto) 1.9 % Basophils (%) (Auto) 1.2 % Neutrophils # (Auto) 7.8 TH/MM3 Lymphocytes # (Auto) 1.3 TH/MM3 Monocytes # (Auto) 0.5 TH/MM3 Eosinophils # (Auto) 0.2 TH/MM3 Basophils # (Auto) 0.1 TH/MM3 CBC Comment DIFF FINAL Differential Comment Prothrombin Time 11.0 SEC Prothromb Time International 1.0 RATIO Ratio Activated Partial 25.9 SEC 31.1 SEC 47.8 SEC 72.1 SEC Thromboplast Time Sodium Level 140 MEQ/L Potassium Level 3.8 MEQ/L Chloride Level 104 MEQ/L Carbon Dioxide Level 27.2 MEQ/L Anion Gap 9 MEQ/L Blood Urea Nitrogen 6 MG/DL Creatinine 0.65 MG/DL Estimat Glomerular Filtration 89 ML/MIN Rate Random Glucose 96 MG/DL Calcium Level 8.9 MG/DL Total Bilirubin 0.4 MG/DL Aspartate Amino Transf 13 U/L (AST/SGOT) Alanine Aminotransferase 16 U/L (ALT/SGPT) Alkaline Phosphatase 78 U/L Total Protein 7.2 GM/DL Albumin 3.7 GM/DL Test 07/09/16 08:43 Activated Partial 62.7 SEC Thromboplast Time Imaging Last Impressions Aorta w/Runoff CTA 07/08/16 0000 Signed Impressions: Service Date/Time: Friday, July 08, 2016 10:28 - CONCLUSION: 1. Left leg : 2. There are least 2 areas of high-grade stenosis in the left external iliac circulation proximally. These areas would be readily amenable to endovascular treatment. The runoff to the left lower extremity is diseased but adequate. 3. 4. Right le. The inflow and runoff to the right lower extremity appears diseased but adequate. Rommel Anaya MD Lower Extremity Ultrasound 07/07/16 0000 Signed Impressions: Service Date/Time: Thursday, July 07, 2016 16:32 - CONCLUSION: Normal examination. No evidence DVT Jus Nunez MD Objective Remarks General: NAD, AAOx3 Chest: CTA bilaterally Cardiac: Regular Abd: +BS, soft ND/NT Ext: Left great toe with some redness and tenderness to the touch A/P Problem List: (1) Peripheral vascular disease with pain at rest Status: Chronic Plan: - Pt admitted with acute exacerbation of likely chronic vascular disease. - Pt was admitted for a worsening dark/painful area on her left great toe. - Vascular surgery is following. - CTA with runoff --> Left leg: There are least 2 areas of high-grade stenosis in the left external iliac circulation proximally. The runoff to the left lower extremity is diseased but adequate. Right leg: The inflow and runoff to the right lower extremity appears diseased but adequate. - Pt is on heparin gtt and they have discussed the risk and benefits of this with her particularly given her history of aneurysmal clipping. - The left toe actually looks better than what it did earlier per patient report. - Await vascular surgery recommendations regarding intervention - Pt complains of increased nausea yesterday and we thought it could have been her 21mcg Nicotine patches so theses were stopped on 07/08 but pt still nauseated today and requesting lower dose nicotine patch. - Resume NicoDerm 14mcg daily - Add Protonix 40mg po daily - Zofran to q4h PRN - Pain meds PRN (2) COPD (chronic obstructive pulmonary disease) Status: Chronic Plan: - Duo neb as needed. (3) Hypertension Status: Chronic Plan: - Home medication continued (4) Hyperlipidemia Status: Chronic Plan: - Statin (5) Tobacco use Status: Chronic Plan: - Strongly encouraged her to quit smoking. - NicoDerm patch. (6) Anxiety Status: Chronic Plan: - Lorazepam as at home. Assessment and Plan Patient examined. Assessment and plan formulated with Jessica Camarillo PA-C. I agree with the above. awaiting vascular procedure add ppi and prn antiemetics. nicotine patch heparin for now. Problem Qualifiers (1) Hypertension: Qualified Code: I10 - Essential hypertension Jessica Camarillo Jul 09, 2016 12:27 Junior Castañeda MD Jul 09, 2016 13:07
[2016-07-09] MEDS: CARISOPRODOL 350 MG TAB PO PRN (12:49)
[2016-07-09] MEDS: LORazepam 1 MG TAB PO PRN ×2 (12:49→21:27)
[2016-07-09] MEDS: REMOVE OLD NICODERM (NICOTINE) PATCH TD SCH (13:54)
[2016-07-09] MEDS: NICOTINE 14 MG/24 HR PATCH TD SCH (13:54)
[2016-07-09] MEDS: PANTOPRAZOLE SOD 40 MG DELAYED RELEASE TAB PO SCH (13:54)
[2016-07-09] MEDS: ACETAMINOPHEN/HYDROcodone 325 MG/7.5 MG TAB PO PRN (21:30)
[2016-07-09] MEDS: HEPARIN-D5W INJ 250 ML IV SCH (23:22)
[2016-07-10] VITALS (8 sets, daily range): BP systolic 130–163; BP diastolic 62–70; PULSE 67–83; RESP 18–20; TEMP 96–97.8; O2SAT 91–97
[2016-07-10 07:58] LABS: APTT (PATIENT) 128.4 SEC (24.3-30.1)
[2016-07-10] MEDS: METOPROLOL TARTRATE 25 MG TAB PO SCH (08:59)
[2016-07-10] MEDS: ATORVASTATIN 40 MG TAB PO SCH (09:00)
[2016-07-10] MEDS: busPIRone HCL 10 MG TAB PO SCH ×2 (09:01→22:06)
[2016-07-10] MEDS: PANTOPRAZOLE SOD 40 MG DELAYED RELEASE TAB PO SCH (09:01)
[2016-07-10] MEDS: SODIUM CHLORIDE 0.9% FLUSH 5 ML FLUSH IVF SCH ×2 (09:02→22:06)
[2016-07-10] MEDS: REMOVE OLD NICODERM (NICOTINE) PATCH TD SCH (09:03)
[2016-07-10] MEDS: NICOTINE 14 MG/24 HR PATCH TD SCH (09:03)
[2016-07-10 10:23] LABS: APTT (PATIENT) 54.5 SEC (24.3-30.1)
--- NOTE | 2016-07-10 10:34 | HHI.PR ---
Subjective Remarks no events Objective Vitals heart reg lung cta abd s/nt ext left great toe skin color change noted. Vital Signs Date Time Temp Pulse Resp B/P Pulse Ox O2 Delivery O2 Flow Rate FiO2 07/10/16 09:18 96.8 79 18 146/62 91 07/10/16 04:00 97.1 74 18 140/65 94 07/10/16 00:00 97.7 82 20 163/70 97 07/09/16 20:00 97.3 95 20 172/70 96 07/09/16 18:31 97.2 69 18 158/74 95 07/09/16 18:00 90 07/09/16 18:00 74 07/09/16 13:54 16 07/09/16 13:29 96.5 68 18 135/63 93 07/09/16 11:17 96 21 07/09/16 07/09/16 07/10/16 15:00 23:00 07:00 # Voids 8 2 # Bowel Movements 2 Result Diagram: 07/07/16 1456 07/07/16 1456 Imaging Last Impressions Aorta w/Runoff CTA 07/08/16 0000 Signed Impressions: Service Date/Time: Friday, July 08, 2016 10:28 - CONCLUSION: 1. Left leg : 2. There are least 2 areas of high-grade stenosis in the left external iliac circulation proximally. These areas would be readily amenable to endovascular treatment. The runoff to the left lower extremity is diseased but adequate. 3. 4. Right le. The inflow and runoff to the right lower extremity appears diseased but adequate. Rommel Anaya MD Lower Extremity Ultrasound 07/07/16 0000 Signed Impressions: Service Date/Time: Thursday, July 07, 2016 16:32 - CONCLUSION: Normal examination. No evidence DVT Jus Nunez MD A/P Problem List: (1) Peripheral vascular disease with pain at rest Status: Chronic Plan: - Pt admitted with acute exacerbation of likely chronic vascular disease. - Pt was admitted for a worsening dark/painful area on her left great toe. - Vascular surgery is following. - CTA with runoff --> Left leg: There are least 2 areas of high-grade stenosis in the left external iliac circulation proximally. The runoff to the left lower extremity is diseased but adequate. Right leg: The inflow and runoff to the right lower extremity appears diseased but adequate. - Pt is on heparin gtt and they have discussed the risk and benefits of this with her particularly given her history of aneurysmal clipping. - The left toe actually looks better than what it did earlier per patient report. - Await vascular surgery recommendations regarding intervention - Pt complained of increased nausea and we thought it could have been her 21mcg Nicotine patches so theses were stopped on 07/08 but pt still nauseated and requesting lower dose nicotine patch. - Resume NicoDerm 14mcg daily - Add Protonix 40mg po daily - Zofran to q4h PRN - Pain meds PRN awaiting OR Thursday (2) COPD (chronic obstructive pulmonary disease) Status: Chronic Plan: - Duo neb as needed. (3) Hypertension Status: Chronic Plan: - Home medication continued (4) Hyperlipidemia Status: Chronic Plan: - Statin (5) Tobacco use Status: Chronic Plan: - Strongly encouraged her to quit smoking. - NicoDerm patch. (6) Anxiety Status: Chronic Plan: - Lorazepam as at home. Problem Qualifiers (1) Hypertension: Qualified Code: I10 - Essential hypertension Junior Castañeda MD Jul 10, 2016 10:34
--- NOTE | 2016-07-10 12:07 | PD.VS.PN ---
Subjective Subjective/Hospital Course Pt is a 75/F resting peacefully in bed with no complaints today sitting in chair alert and oriented times 3, GCS 15 Pt reported no worsening or improvement of discoloration to left great toe. (Melodie Lane) Objective Vitals/I&O Date Time Temp Pulse Resp B/P Pulse Ox O2 Delivery O2 Flow Rate FiO2 07/10/16 09:18 96.8 79 18 146/62 91 07/10/16 04:00 97.1 74 18 140/65 94 07/10/16 00:00 97.7 82 20 163/70 97 07/09/16 20:00 97.3 95 20 172/70 96 07/09/16 18:31 97.2 69 18 158/74 95 07/09/16 18:00 90 07/09/16 18:00 74 07/09/16 13:54 16 07/09/16 13:29 96.5 68 18 135/63 93 Physical Exam GENERAL: Pleasant 76/F who is alert and oriented in nad. SKIN: Warm and dry. Right great toe red in color with no worsening or improvement since hospital visit NECK: Supple, trachea midline. No JVD or lymphadenopathy. CARDIOVASCULAR: Regular rate and rhythm RESPIRATORY: Breath sounds equal bilaterally. No accessory muscle use. MUSCULOSKELETAL: No cyanosis, or edema. (Melodie Lane) Laboratory Laboratory Tests Test 07/10/16 07/10/16 06:54 09:43 Activated Partial 128.4 54.5 Thromboplast Time (Melodie Lane) Assessment and Plan Assessment: (1) Peripheral vascular disease with pain at rest Status: Chronic Plan 75 year old female with hx of smoking, hypertension and hyperlipidemia. Critical limb ischemia with great toe wound/ischemic changes left lower extremity. (6 weeks since findings) Motor and sensory intact. Vascular exam significant for multilevel disease. Discussed angiogram (Thursday07/11/16) with possible intervention with the patient. NPO after midnight [facility] [phone] (Melodie Lane) Assessment: (1) Peripheral vascular disease with pain at rest Status: Chronic Plan I agree with above diagnosis and plan for treatment. Robby Diaz DO, FACS [employer] Board Member of Vascular Surgery /[place] (Robby Diaz DO) Melodie Lane Jul 10, 2016 12:07 Robby Diaz DO Jul 10, 2016 16:50
[2016-07-10] MEDS: LORazepam 1 MG TAB PO PRN (12:45)
[2016-07-10] MEDS: CARISOPRODOL 350 MG TAB PO PRN (12:45)
[2016-07-10 13:53] LABS: APTT (PATIENT) 33.1 SEC (24.3-30.1)
[2016-07-10 22:13] LABS: APTT (PATIENT) 45.3 SEC (24.3-30.1)
[2016-07-11] VITALS (12 sets, daily range): BP systolic 119–177; BP diastolic 56–76; PULSE 67–87; RESP 16–20; TEMP 95.7–97.9; O2SAT 93–98
[2016-07-11] MEDS: LORazepam 1 MG TAB PO PRN ×3 (00:01→22:43)
[2016-07-11] MEDS: CARISOPRODOL 350 MG TAB PO PRN ×2 (00:01→23:38)
[2016-07-11] MEDS: ACETAMINOPHEN/HYDROcodone 325 MG/7.5 MG TAB PO PRN ×2 (00:02→22:43)
[2016-07-11 04:11] LABS: APTT (PATIENT) 59.3 SEC (24.3-30.1)
[2016-07-11] MEDS ORDERED: HEPARIN SODIUM - IV 10,000 UNITS/10 ML VIAL ONE (07:20)
[2016-07-11] MEDS ORDERED: HEPARIN SODIUM - SQ 10,000 UNITS/ML VIAL ONE (07:20)
[2016-07-11] MEDS: METOPROLOL TARTRATE 25 MG TAB PO SCH (07:46)
[2016-07-11] MEDS ORDERED: LACTATED RINGER'S 1,000 ML BAG XX ONE (08:20)
[2016-07-11] MEDS ORDERED: RESP: ALBUTEROL 2.5 MG/3 ML NEB (SCH) ONE (08:24)
[2016-07-11] MEDS ORDERED: BUPIVACAINE/EPINEPHRINE 0.25% PF 30 ML VIAL ONE (08:51)
--- NOTE | 2016-07-11 08:52 | HHI.PR ---
Subjective Remarks no problems overnight Objective Vitals heart reg lung cta abd s/nt ext left great toe tip reddish. not hot Vital Signs Date Time Temp Pulse Resp B/P Pulse Ox O2 Delivery O2 Flow Rate FiO2 07/11/16 08:00 96.6 80 16 165/67 94 07/11/16 04:52 97.1 69 20 161/73 93 07/11/16 01:01 18 07/11/16 01:01 18 07/11/16 00:00 95.7 67 20 153/67 96 07/10/16 22:30 70 07/10/16 20:58 96.0 83 20 151/69 95 07/10/16 16:12 97.8 72 18 130/64 07/10/16 12:15 96.6 69 18 154/69 94 07/10/16 09:18 96.8 79 18 146/62 91 07/10/16 07/10/16 07/11/16 15:00 23:00 07:00 Intake Total 480 ml Balance 480 ml Intake Oral 480 ml # Voids 4 2 Result Diagram: 07/07/16 1456 07/07/16 1456 Imaging Last Impressions Aorta w/Runoff CTA 07/08/16 0000 Signed Impressions: Service Date/Time: Friday, July 08, 2016 10:28 - CONCLUSION: 1. Left leg : 2. There are least 2 areas of high-grade stenosis in the left external iliac circulation proximally. These areas would be readily amenable to endovascular treatment. The runoff to the left lower extremity is diseased but adequate. 3. 4. Right le. The inflow and runoff to the right lower extremity appears diseased but adequate. Rommel Anaya MD Lower Extremity Ultrasound 07/07/16 0000 Signed Impressions: Service Date/Time: Thursday, July 07, 2016 16:32 - CONCLUSION: Normal examination. No evidence DVT Jus Nunez MD A/P Problem List: (1) Peripheral vascular disease with pain at rest Status: Chronic Plan: - Pt admitted with acute exacerbation of likely chronic vascular disease. - Pt was admitted for a worsening dark/painful area on her left great toe. - Vascular surgery is following. - CTA with runoff --> Left leg: There are least 2 areas of high-grade stenosis in the left external iliac circulation proximally. The runoff to the left lower extremity is diseased but adequate. Right leg: The inflow and runoff to the right lower extremity appears diseased but adequate. - Pt is on heparin gtt and they have discussed the risk and benefits of this with her particularly given her history of aneurysmal clipping. - The left toe actually looks better than what it did earlier per patient report. - Await vascular surgery recommendations regarding intervention - Pt complained of increased nausea and we thought it could have been her 21mcg Nicotine patches so theses were stopped on 07/08 but pt still nauseated and requesting lower dose nicotine patch. - Resume NicoDerm 14mcg daily - Add Protonix 40mg po daily - Zofran to q4h PRN - Pain meds PRN TO OR TODAY FOR ANGIOGRAM AND INTERVENTION IF NEEDED. CONT CURRENT RX. (2) COPD (chronic obstructive pulmonary disease) Status: Chronic Plan: - Duo neb as needed. (3) Hypertension Status: Chronic Plan: - Home medication continued (4) Hyperlipidemia Status: Chronic Plan: - Statin (5) Tobacco use Status: Chronic Plan: - Strongly encouraged her to quit smoking. - NicoDerm patch. (6) Anxiety Status: Chronic Plan: - Lorazepam as at home. Problem Qualifiers (1) Hypertension: Qualified Code: I10 - Essential hypertension Junior Castañeda MD Jul 11, 2016 08:52
[2016-07-11] MEDS: ATORVASTATIN 40 MG TAB PO SCH (09:45)
--- NOTE | 2016-07-11 11:02 | PD.VS.PN ---
Subjective Subjective/Hospital Course Patient status post left external iliac artery balloon angioplasty. Objective Vitals/I&O Date Time Temp Pulse Resp B/P Pulse Ox O2 Delivery O2 Flow Rate FiO2 07/11/16 08:00 96.6 80 16 165/67 94 07/11/16 04:52 97.1 69 20 161/73 93 07/11/16 01:01 18 07/11/16 01:01 18 07/11/16 00:00 95.7 67 20 153/67 96 07/10/16 22:30 70 07/10/16 20:58 96.0 83 20 151/69 95 07/10/16 16:12 97.8 72 18 130/64 07/10/16 12:15 96.6 69 18 154/69 94 Physical Exam left femoral palpable left PT triphasic, left DP triphasic. Left groin soft. Laboratory Laboratory Tests Test 07/10/16 07/10/16 07/11/16 07/11/16 13:20 20:50 03:44 07:36 Activated Partial 33.1 45.3 59.3 Thromboplast Time Blood Type B POSITIVE Antibody Screen NEGATIVE Blood Bank Comment Assessment and Plan Assessment: (1) Peripheral vascular disease with pain at rest Status: Chronic Plan Status post balloon angioplasty of left external iliac artery. Patient does not need to be on heparin from a VASCULAR standpoint. She should be on aspirin daily. If not hematoma later today in left groin should be able to be discharged from my standpoint with follow up in two weeks with duplex US of aortoiliac vessels and ABIs. Robby Diaz DO, FACS Release Specialist of Vascular Surgery EMERY/Robby Vásquez DO Jul 11, 2016 11:02
[2016-07-11] MEDS ORDERED: PROPOFOL 200 MG/20 ML AMP IV ONE (12:00)
[2016-07-11] MEDS ORDERED: IOHEXOL 300 MG/ML 100 ML BTL (for Rad CT) IV ONE (12:00)
--- NOTE | 2016-07-11 16:15 | EKG ---
Date Performed: 07/11/2016 Time Performed: 06:39:15 PTAGE: 76 years EKG: Sinus rhythm POSSIBLE RIGHT ATRIAL ENLARGEMENT BORDERLINE ECG PREVIOUS TRACING : 01/31/2010 19.29 Compared to prior tracing no significant change DOCTOR: Robe Razo Interpretating Date/Time 07/11/2016 16:14:37
[2016-07-11 20:02] LABS: APTT (PATIENT) 24.9 SEC (24.3-30.1)
[2016-07-11] MEDS: REMOVE OLD NICODERM (NICOTINE) PATCH TD SCH (21:00)
[2016-07-11] MEDS: busPIRone HCL 10 MG TAB PO SCH (21:00)
[2016-07-11] MEDS: SODIUM CHLORIDE 0.9% FLUSH 5 ML FLUSH IVF SCH (22:42)
[2016-07-12] VITALS (11 sets, daily range): BP systolic 104–119; BP diastolic 61–64; PULSE 70–84; RESP 18–22; TEMP 98.4–98.7; O2SAT 75–96
[2016-07-12] MEDS ORDERED: ASPI325T33 PO (08:11)
--- NOTE | 2016-07-12 08:12 | HHI.DCPOC ---
Discharge Care Plan Diagnosis: (1) PAD (peripheral artery disease) Goals to Promote Your Health * To prevent worsening of your condition and complications * To maintain your health at the optimal level Directions to Meet Your Goals Take your medications as prescribed Follow your dietary instruction Follow activity as directed Keep your appointments as scheduled Take your immunizations and boosters as scheduled If your symptoms worsen call your PCP, if no PCP go to Urgent Care Center or Emergency Room Smoking is Dangerous to Your Health. Avoid second hand smoke Call the 24-hour hour crisis hotline for domestic abuse at Junior Castañeda MD Jul 12, 2016 08:12
[2016-07-12] MEDS: METOPROLOL TARTRATE 25 MG TAB PO SCH (09:50)
[2016-07-12] MEDS: busPIRone HCL 10 MG TAB PO SCH (09:51)
[2016-07-12] MEDS: PANTOPRAZOLE SOD 40 MG DELAYED RELEASE TAB PO SCH (09:51)
[2016-07-12] MEDS: SODIUM CHLORIDE 0.9% FLUSH 5 ML FLUSH IVF SCH (09:52)
[2016-07-12] MEDS: NICOTINE 14 MG/24 HR PATCH TD SCH (09:54)
--- NOTE | 2016-07-12 11:10 | HHI.PR ---
Subjective Remarks pt eager for d/c no events overnight. Objective Vitals heart reg lung cta abd s/nt ext no edema Vital Signs Date Time Temp Pulse Resp B/P Pulse Ox O2 Delivery O2 Flow Rate FiO2 07/12/16 06:01 79 07/12/16 05:00 77 07/12/16 04:01 74 07/12/16 03:29 98.4 84 22 119/64 96 07/12/16 03:00 78 07/12/16 02:00 71 07/12/16 01:01 70 07/12/16 00:00 74 07/11/16 23:01 73 07/11/16 23:01 97.9 77 20 119/57 95 07/11/16 22:01 80 07/11/16 21:37 95 21 07/11/16 21:00 78 07/11/16 20:15 97.8 83 20 119/56 96 07/11/16 20:00 87 07/11/16 19:00 87 07/11/16 18:22 97.7 82 18 177/76 98 07/11/16 12:04 100 Room Air 07/11/16 07/11/16 07/12/16 15:00 23:00 07:00 Intake Total 480 ml Output Total 100 ml Balance 380 ml Intake Oral 480 ml Output Urine Total 100 ml # Voids 1 3 # Bowel Movements 0 Imaging Last Impressions Aorta w/Runoff CTA 07/08/16 0000 Signed Impressions: Service Date/Time: Friday, July 08, 2016 10:28 - CONCLUSION: 1. Left leg : 2. There are least 2 areas of high-grade stenosis in the left external iliac circulation proximally. These areas would be readily amenable to endovascular treatment. The runoff to the left lower extremity is diseased but adequate. 3. 4. Right le. The inflow and runoff to the right lower extremity appears diseased but adequate. Rommel Anaya MD Lower Extremity Ultrasound 07/07/16 0000 Signed Impressions: Service Date/Time: Thursday, July 07, 2016 16:32 - CONCLUSION: Normal examination. No evidence DVT Jus Nunez MD A/P Problem List: (1) Peripheral vascular disease with pain at rest Status: Chronic Plan: - Pt admitted with acute exacerbation of likely chronic vascular disease. - Pt was admitted for a worsening dark/painful area on her left great toe. - Vascular surgery is following. - CTA with runoff --> Left leg: There are least 2 areas of high-grade stenosis in the left external iliac circulation proximally. The runoff to the left lower extremity is diseased but adequate. Right leg: The inflow and runoff to the right lower extremity appears diseased but adequate. - Pt is on heparin gtt and they have discussed the risk and benefits of this with her particularly given her history of aneurysmal clipping. - The left toe actually looks better than what it did earlier per patient report. - Await vascular surgery recommendations regarding intervention - Pt complained of increased nausea and we thought it could have been her 21mcg Nicotine patches so theses were stopped on 07/08 but pt still nauseated and requesting lower dose nicotine patch. - Resume NicoDerm 14mcg daily - Add Protonix 40mg po daily - Zofran to q4h PRN - Pain meds PRN Pt had balloon angioplasty of ext iliac artery on left heparin off. asa recommended per vascular d/c home and f/u 2 weeks for doppler and tyler. (2) COPD (chronic obstructive pulmonary disease) Status: Chronic Plan: - Duo neb as needed. (3) Hypertension Status: Chronic Plan: - Home medication continued (4) Hyperlipidemia Status: Chronic Plan: - Statin (5) Tobacco use Status: Chronic Plan: - Strongly encouraged her to quit smoking. - NicoDerm patch. (6) Anxiety Status: Chronic Plan: - Lorazepam as at home. Problem Qualifiers (1) Hypertension: Qualified Code: I10 - Essential hypertension Junior Castañeda MD Jul 12, 2016 11:10
--- NOTE | 2016-07-16 17:43 | MP ---
cc: CHARISSE ROSALES DO DATE OF SURGERY 07/11/[address] Charisse Rosales. PREOPERATIVE DIAGNOSIS History of possible lateral emboli / external iliac artery, high-grade external iliac artery stenosis with history of toe discoloration and 10 pain. POSTOPERATIVE DIAGNOSIS History of possible lateral emboli / external iliac artery, high-grade external iliac artery stenosis with history of toe discoloration and 10 pain. Procedure Left Iliac artery pellvic arteriogram. Left External iliac artery angioplasty SURGEON Charisse Rosales DO TECHNOLOGY LAB TEACHER Kajal Dawson. IV FLUIDS Approximately one liter of crystalloid. ESTIMATED BLOOD LOSS Minimal. URINE OUTPUT 300 cc. ANESTHESIA MAC and local 2 cc of 0.25% Marcaine with epinephrine to the left groin. PROCEDURE DETAILS The patient was prepped and draped in sterile fashion from the abdomen to the toes. I used duplex ultrasound to get access to the left common femoral artery. I placed a 21 gauge needle and exchanged for a non braided wire for 4-Iranian micropuncture catheter, then exchanged over braided wire for a 5-Iranian sheath. I then advanced an Omni flush catheter, stiff angled Glidewire in the abdominal aorta and I shot a pelvic AP aortogram. I pulled my catheter down and shot pelvic oblique arteriograms. After I was done with this my findings were that the abdominal aorta was patent. Bilateral renal arteries were patent. The right common internal and external iliac arteries were patent. The right common iliac artery had an eccentric plaque just at its origin. There was essentially appeared to be least a mild stenosis but does not appear to be flow-limiting. On the left the common iliac and external iliac arteries as well as the hypogastric artery were patent. The left common iliac artery had some mild disease but there was nothing that was flow limiting. The left external iliac artery essentially seemed obstructed by my sheath. The left hypogastric artery had what appeared to be a moderate stenosis at its origin. I then exchanged for a 6-Iranian destination sheath over a wire and then extended this and advanced into the abdominal aorta. I pulled my sheath down with an arterial pressure line from the distal abdominal aorta into the left common femoral artery. It should be noted there was approximately a 30-40 mm systolic pressure gradient between these two areas. This was from approximately 168-128. Based on this, preoperative imaging indication for performing this procedure, I heparinized the patient with 5000 units of heparin. ACT was greater than 200. I performed balloon angioplasty with 6 mm x 60 mm Medtronic balloon. Then I used a 8 mm x 80 mm Medtronic balloon to perform balloon angioplasty. Afterwards there did not appear to be any residual stenosis in the external iliac artery with rapid flow. Now there was a pulsatility in the left groin. I then shot the selective left lower extremity angiogram which showed that the left common profunda and superficial femoral arteries were widely patent. The left popliteal artery was patent. The main runoff to the left lower extremity was through the left posterior tibial artery across the level of the ankle. It did appear that the peroneal and anterior tibial arteries lagged behind this but were patent proximally and it did appear that the left dorsalis pedis filled in late which I suspect was through collateralization. At the end of the procedure we gave protamine to reverse the heparin and then measured another ACT. Once it was less than 200 we pulled the sheath out of the left groin before exiting the room and applied pressure to the left groin. So in summary the patient had balloon angioplasty of the left external iliac artery by way of an aortogram, pelvic oblique arteriogram and selective left lower extremity arteriogram with ultrasound access. DO CHANDRAKANT Suazo /10:42 AM /5:12 PM KASEY
--- NOTE | 2016-07-30 10:20 | HHI.DS ---
Discharge Summary Admission Date Jul 07, 2016 at 18:19 Discharge Date: Jul 12, 2016 Admitting Diagnosis vascular insufficient left leg (1) Peripheral vascular disease with pain at rest Diagnosis: Principal (2) COPD (chronic obstructive pulmonary disease) (3) Hypertension Diagnosis: Secondary (4) Hyperlipidemia Diagnosis: Secondary (5) Tobacco use Diagnosis: Secondary (6) Anxiety Diagnosis: Secondary Brief History 75-year-old female with history of coronary artery disease, COPD and long time cigarette use presents to the emergency department for evaluation of discoloration of her distal left toe. Patient first noted redness in the form of a small red dots about 2 mm in diameter on the tip of her left great toe approximately 6 weeks ago. The small dot remains the same until approximately 4 days ago when it started to swell and have more redness. She noted some black discoloration last night and this morning with increased pain. She notes more pain with exertion and actually has some claudication symptoms in the entire left lower extremity as well. She states that her left lower extremity feels numb at times over the last day as well. Elevation helps to reduce the sensation pain however the discoloration does not resolve completely. She went to extended hours clinic at [facility] who sent her to the emergency department for evaluation of occlusion versus DVT. She has not been recently ill. No fevers or chills. No chest tightness. No shortness of breath. She does feel unsteady due to the numbness sensation in her left lower extremity. She has been evaluated by ER physician as well as a vascular surgeon in the ER. Angiogram has been ordered and patient was placed on heparin drip. Her toe discoloration is actually improved since the foot has been elevated and she has been on a heparin drip. She still has pain in the left great toe but not as severe. Hospital Course - Pt admitted with acute exacerbation of likely chronic vascular disease. - Pt was admitted for a worsening dark/painful area on her left great toe. - CTA with runoff --> Left leg: There are least 2 areas of high-grade stenosis in the left external iliac circulation proximally. The runoff to the left lower extremity is diseased but adequate. Right leg: The inflow and runoff to the right lower extremity appears diseased but adequate. - Pt was on heparin gtt and they have discussed the risk and benefits of this with her particularly given her history of aneurysmal clipping. -Pt had balloon angioplasty of ext iliac artery on left -asa recommended per vascular d/c home and f/u 2 weeks for doppler and tyler. Pt Condition on Discharge: Stable Discharge Disposition: Discharge Home Discharge Instructions DIET: Follow Instructions for: Heart Healthy Diet Activities you can perform: Regular-No Restrictions Follow up Referrals: Vascular Surgery - 2 Weeks with Robby Diaz V. DO New Medications: Aspirin DR (Aspirin EC) 325 Mg Tabdr 325 MG PO DAILY pad #0 Ref 0 TAB Continued Medications: Buspirone (Buspirone) 10 Mg Tab 10 MG PO BID Anxiety Ref 0 TAB Carisoprodol (Carisoprodol) 350 Mg Tab 350 MG PO BID PRN PAIN #0 Ref 0 TAB Hydrocodone-Acetaminophen (Hydrocodone-Acetaminophen) 7.5-325 mg Tab 1 TAB PO Q8HR PRN PAIN Ref 0 TAB Lorazepam (Lorazepam) 1 Mg Tab 1 MG PO BID PRN for severe anxiety or dyspnea Ref 0 TAB Metoprolol Tartrate (Metoprolol Tartrate) 25 Mg Tab 25 MG PO DAILY #30 Ref 0 TAB Nabumetone (Nabumetone) 750 Mg Tab 750 MG PO BID Pain-Inflammation #60 Ref 0 TAB Junior Castañeda MD Jul 30, 2016 10:19
== END 2016-07-12 11:00 | disposition home or self-care (01) | DRG 254 ==
LOC: NEPA 13:29 → NEDA 18:19 → NEDH 23:15 → N05B 07-08 01:12 → HCIS 07-11 13:38 → HCPC 07-11 16:55
PROVIDERS: ADMIT Hospitalist; ATTEND Hospitalist
PROC: B41D1ZZ Fluoroscopy of Aorta and Bilateral Lower Extremity Arteries using Low Osmolar Contrast (ICD-10-PCS; 2016-07-11)
PROC: B41G1ZZ Fluoroscopy of Left Lower Extremity Arteries using Low Osmolar Contrast (ICD-10-PCS; 2016-07-11)
PROC: 047J3ZZ Dilation of Left External Iliac Artery, Percutaneous Approach (ICD-10-PCS; principal; 2016-07-11 08:37)
DX: I73.9 Peripheral vascular disease, unspecified (principal); J44.9 Chronic obstructive pulmonary disease, unspecified; I34.1 Nonrheumatic mitral (valve) prolapse; K22.70 Barrett's esophagus without dysplasia; I10 Essential (primary) hypertension; E78.5 Hyperlipidemia, unspecified; F41.9 Anxiety disorder, unspecified; F17.210 Nicotine dependence, cigarettes, uncomplicated; I25.10 Atherosclerotic heart disease of native coronary artery without angina pectoris; M81.0 Age-related osteoporosis without current pathological fracture; Z90.710 Acquired absence of both cervix and uterus; Z91.041 Radiographic dye allergy status
CPT/HCPCS: 75635; 75710; 80053; 85025; 85610; 85730; 86850; 86900; 86901; 93005; 93923; 93971; C1769; J1644; J2060; J2405; J3010; J7030; J7120; J7613; Q9967